=== PATIENT | female | born 1985 | race Caucasian/White ===

== ENCOUNTER 2018-08-19 11:54 | Outpatient (CLI) | payer OTHER ==
[~2018-08-19 11:54] MED LIST: PRENATAL CAPLE1 EACH PO
== END 2018-08-19 12:16 | disposition home or self-care (01) ==
LOC: SONOGRAMA 11:54
DX: N60.11 Diffuse cystic mastopathy of right breast (principal); N60.12 Diffuse cystic mastopathy of left breast

== ENCOUNTER 2023-09-16 02:56 | Inpatient (IN) | payer OTHER ==
[~2023-09-16] VITALS: Ht 157.5 cm; Wt 77.1 kg
[~2023-09-16 02:56] MED LIST changes: +ONDANSETRON ODT8 MG PO; +PEPCID AC20 MG PO; +TUSSIN100 MG/51 PO
[2023-09-16] MEDS ORDERED: BETAMETHASONE ACETATE,SOD PHOS 30 MG/5 ML ML IM STA (03:33)
[2023-09-16] MEDS ORDERED: MAGNESIUM SULFATE IN WATER 500 ML IV SCH (03:45)
[2023-09-16] MEDS ORDERED: MAGNESIUM SULFATE IN WATER 4 GM/100 ML PIGGYBACK IV ONE (03:45)
[2023-09-16] MEDS ORDERED: RINGERS SOLUTION,LACTATED 1,000 ML IV SCH (03:45)
[2023-09-16 03:59] LABS: PH,URINE 7.5 (5.0-8.0); URINE APPEARANCE Cloudy; URINE BILIRRUBIN Negative (NEGATIVE); URINE BLOOD Negative; URINE COLOR Yellow; URINE GLUCOSE Negative (NEGATIVE); URINE KETONE Negative (NEGATIVE); URINE LEUKOCYTE Moderate; URINE NITRATE Negative; URINE PROTEIN Negative (NEGATIVE); URINE UROBILINOGEN 0.2 E.U./dl
[2023-09-16 04:02] LABS: URINE BACTERIA 1867.1 uL (0.0-1933); URINE EPITHELIAL CELLS 115.8 uL (0.0-38.8); URINE RBC 7.4 uL (0.0-20.8); URINE WBC 98.3 uL (0.0-23.2)
[2023-09-16 04:13] LABS: HEMOGLOBIN 12.4 g/dL (12.0-15.00); MEAN CORPUSCULAR HEMOGLOBIN 29.9 pg (27.00-32.0); MEAN CORPUSCULAR HGB CONC 33.6 g/dl (32.0-36.0); PLATELET COUNT 236 K/uL (150-450); RED BLOOD COUNT 4.16 M/uL (4.00-6.00); RED CELL DISTRIBUTION WIDTH 15.1 % (11.5-14.5)
[2023-09-16 04:15] LABS: INR 0.94; PARTIAL THROMBOPLASTIN TIME 25.4 SECONDS (22.0-34.0); PROTHROMBIN TIME 9.9 SECONDS (9.0-11.5)
[2023-09-16 04:19] LABS: ALBUMIN 2.9 gm/dL (3.4-5.0); BILIRUBIN TOTAL 0.26 mg/dL (0.3-1.2); CREATININE SERUM 0.45 mg/dL (0.55-1.02); GFR 155.11; GLOBULINA 3.5 G/DL (2.4-3.5); POTASSIUM 3.9 mEq/L (3.5-5.1); TOTAL PROTEIN 6.4 gm/dL (6.4-8.2)
[2023-09-16 04:21] LABS: URINE CAST 0.15 uL (0.0-1.40); URINE MUCUS SCANT
[2023-09-16 04:22] LABS: URINE CRYSTALS FEW /HPF
[2023-09-17] MEDS ORDERED: BETAMETHASONE ACETATE,SOD PHOS 30 MG/5 ML ML IM ONE (03:35)
[2023-09-17] MEDS ORDERED: MORPHINE SULFATE 4 MG/ML CARTRIDGE IV ONE (19:15)
[2023-09-18] MEDS ORDERED: NIFEDIPINE 30 MG TAB.SA.OSM PO SCH (09:00)
[2023-09-19] MEDS ORDERED: NIFEDIPINE 30 MG TAB.SA.OSM PO SCH (09:00)
== END 2023-09-19 13:55 | disposition home or self-care (01) | DRG 833 ==
LOC: LDR → OB/GYN 09-18 09:34
PROVIDERS: ADMIT Obstetrics & Gynecology; ATTEND Obstetrics & Gynecology
PROC: 4A1HXCZ Monitoring of Products of Conception, Cardiac Rate, External Approach (ICD-10-PCS; principal; 2023-09-16)
PROC: BY4FZZZ Ultrasonography of Third Trimester, Single Fetus (ICD-10-PCS; 2023-09-17)
PROC: BU4CZZZ Ultrasonography of Uterus and Ovaries (ICD-10-PCS; 2023-09-17)
DX: O47.03 False labor before 37 completed weeks of gestation, third trimester (principal); O26.853 Spotting complicating pregnancy, third trimester; O36.8130 Decreased fetal movements, third trimester, not applicable or unspecified; Z3A.29 29 weeks gestation of pregnancy; Z20.822 Contact with and (suspected) exposure to COVID-19

== ENCOUNTER 2023-10-07 17:04 | Outpatient (CLI) | payer OTHER | END 2023-10-07 18:24 | disposition home or self-care (01) | LOC: NST 17:04 | PROVIDERS: ATTEND Obstetrics & Gynecology Maternal & Fetal Medicine | DX: Z34.83 Encounter for supervision of other normal pregnancy, third trimester (principal) ==

== ENCOUNTER 2023-10-08 15:39 | Outpatient (CLI) | payer OTHER | END 2023-10-08 16:46 | disposition home or self-care (01) | LOC: NST 15:39 | PROVIDERS: ATTEND Obstetrics & Gynecology | DX: Z34.83 Encounter for supervision of other normal pregnancy, third trimester (principal) ==